=== PATIENT | female | born 1965 | race Caucasian/White ===

== ENCOUNTER → 2018-02-03 | Outpatient (CLI) | payer BC ==
--- NOTE | 2018-02-03 12:27 | MM ---
Reason for exam: screening (asymptomatic). Last mammogram was performed 3 years and 1 month ago. Physical Findings: A clinical breast exam by your physician is recommended on an annual basis and results should be correlated with mammographic findings. MG Screening Mammo w CAD Bilateral CC and MLO view(s) were taken. Prior study comparison: December 25, 2014, bilateral MG work up mamm w CAD BILAT. December 03, 2014, bilateral MG screening mammo w CAD. There are scattered fibroglandular densities. There is chronic nodularity in the right breast. Fluctuating circumscribed nodularity on the left. 2-3 nodules are more pronounced. A benign process is suspected. 6 month follow up recommended. ASSESSMENT: Probably benign, BI-RAD 3 RECOMMENDATION: Follow-up diagnostic mammogram of the left breast in 6 months. [place]
== END | disposition home or self-care (01) ==
LOC: RADMAMWWP 07:46
PROVIDERS: ATTEND Family Medicine
DX: Z12.31 Encounter for screening mammogram for malignant neoplasm of breast (principal)
CPT/HCPCS: 77067

== ENCOUNTER → 2020-09-13 | Outpatient (CLI) | payer BC ==
--- NOTE | 2020-09-18 09:30 | USB ---
Reason for exam: follow-up at short interval from prior study. Physical Findings: Nurse Summary: all soft, nodular, movable (nurse ts). US Breast Limited LT Left limited breast ultrasound including focal area of concern, retroareolar and axilla demonstrates a 9 x 5 x 9mm cystic, mixed lesion at 2 o'clock, aspiration recommended, a 5 x 3 x 7mm cystic lesion at 2 o'clock and a 7 x 3 x 6mm cystic lesion at 2 o'clock. Also recommend bilateral mammography. These results were verbally communicated with the patient and result sheet given to the patient on 09/13/20. ASSESSMENT: Suspicious, BI-RAD 4 RECOMMENDATION: Aspiration of the left breast. Called Dr. Shine's office with mammographic findings. Patient has not called back to discuss her choice of surgeon. PRELIMINARY REPORT CALLED AND FAXED TO DR. SHINE ON 09/17/20.
== END | disposition home or self-care (01) ==
LOC: RADUSWWP 14:48
PROVIDERS: ATTEND Family Medicine
DX: N63.10 Unspecified lump in the right breast, unspecified quadrant (principal)

== ENCOUNTER → 2020-10-11 | Day surgery (SDC) | payer BC ==
[2020-10-11 10:16] VITALS: RESP 16; TEMP 97.9
[2020-10-11 11:54] VITALS: BP 116/80; PULSE 73
--- NOTE | 2020-10-11 12:28 | USB ---
EXAMINATION TYPE: US biopsy breast VAD LT DATE OF EXAM: 10/11/2020 CLINICAL HISTORY: N63 breast lump. TECHNIQUE: Ultrasound guided vaccuum assisted core biopsy of left breast. COMPARISON: 09/13/2020 ultrasound breast FINDINGS: The ultrasound guided cyst aspiration and core biopsy procedures were explained to the patient. The risks, benefits, alternatives were discussed. An informed consent was then obtained. Timeout was performed. The patient was placed in supine positioning for imaging and for the procedure. The overlying skin was prepped with betadine and sterilely draped in usual sterile fashion. Lidocaine 1% was used as anesthetic into the skin and deeper breast tissue up to area of concern in the breast. An 18-gauge needle was advanced into the hypoechoic area. Cyst aspiration was attempted. It was not collapse of the complex appearing cyst. As previously discussed with the patient, this was converted to a core biopsy. Lidocaine 1% was used as anesthetic into the skin and deeper breast tissue up to area of concern in the breast. A small skin mina was made with surgical scalpel. Under ultrasound guidance, a 12-gauge vacuum assisted biopsy device was used to obtain 4 core samples. A biopsy clip was left in lesion. Wing clip was utilized. Good hemostasis was obtained with direct pressure. Discharge instructions were discussed with the patient. The patient will follow up with the referring physician for results. Postprocedure mammogram: Patient refused post procedure mammogram, both before and after the procedure. Patient was advised that she should be performed in annual mammography. The patient tolerated the procedure well without any immediate complication. The patient was discharged to home in stable condition. IMPRESSION: 1. Successful ultrasound guided biopsy left breast. Recommendations: 1. Recommendations are pending pathology results. Pathology Results: Benign LEFT BREAST, 2:00, CORE BIOPSY: Fibrocystic change with apocrine metaplasia and usual ductal hyperplasia. Current specimen negative for diagnostic in situ or invasive carcinoma. Rare suggestive minute microcalcification seen. Recommendation Follow up ultrasound of the left breast in 6 months. [place]
== END ==
LOC: RADUSWWP 09:28
PROVIDERS: ATTEND Student in an Organized Health Care Education/Training Program
DX: N60.12 Diffuse cystic mastopathy of left breast (principal); N60.82 Other benign mammary dysplasias of left breast; N62 Hypertrophy of breast; Z91.012 Allergy to eggs; Z91.040 Latex allergy status
CPT/HCPCS: 88305; 19083; A4648; J2001

== ENCOUNTER → 2023-11-25 | Outpatient (CLI) | payer BC ==
--- NOTE | 2023-11-26 13:16 | MM ---
Reason for Exam: Screening (asymptomatic). Last mammogram was performed 5 year(s) and 10 month(s) ago. Patient History: Menarche at age 7. First Full-Term at age 18. Postmenopausal. 10/11/2020, Benign Core Biopsy on the left side. Risk Values: Antonia 5 year model risk: 1.3%. NCI Lifetime model risk: 7.0%. Prior Study Comparison: 12/03/2014 Bilateral Screening Mammogram, [facility]. 12/25/2014 Bilateral Diagnostic Mammogram, [facility]. 02/03/2018 Bilateral Screening Mammogram, [facility]. Tissue Density: There are scattered areas of fibroglandular density. Findings: Analyzed By CAD. Right breast: There is no suspicious group of microcalcifications or new suspicious mass. Left breast: There is no suspicious group of microcalcifications or new suspicious mass. Overall Assessment: Negative, BI-RAD 1 Management: Screening Mammogram of both breasts in [address] [facility] will attempt to contact patient to return for supplemental views and ultrasound if indicated. Patient should continue monthly self-breast exams. A clinical breast exam by your physician is recommended on an annual basis. This exam should not preclude additional follow-up of suspicious palpable abnormalities. Note on Antonia scores and lifetime risk: 1. A Antonia score greater than 3% is considered moderate risk. If this is the case, consider specialist referral to assess eligibility for a risk reducing agent. 2. If overall lifetime risk for the development of breast cancer is 20% or higher, the patient may qualify for future screening with alternating mammogram and breast MRI. Electronically signed and approved by: Miki Yepez DO
== END | disposition home or self-care (01) ==
LOC: RADMAMWWP 11:10
PROVIDERS: ATTEND Internal Medicine
DX: Z12.31 Encounter for screening mammogram for malignant neoplasm of breast (principal); Z78.0 Asymptomatic menopausal state
CPT/HCPCS: 77063; 77067